=== PATIENT | male | born 1990 | race Caucasian/White ===

== ENCOUNTER 2024-08-08 15:16 | Emergency (ER) | payer OTHER ==
[~2024-08-08] VITALS: Ht 180.3 cm; Wt 93.0 kg
[2024-08-08] MEDS: TETanus/Pertussis (Acell)/Diphther VAC/PF (Tdap-Adult) 0.5ml syringe IMVAC ONE (15:44)
[2024-08-08] MEDS ORDERED: iohexol 350MG/ML 100ml bottle IV ONE (15:55)
[2024-08-08] MEDS ORDERED: iohexol 300mg/ml 100ml inj. ONE (15:56)
[2024-08-08 16:04] LABS: BASOPHILS # (AUTO) 0.1 X10'3 (0-0.2); BASOPHILS % (AUTO) 0.6 % (0-1); EOSINOPHILS # (AUTO) 0.2 X10'3 (0-0.9); EOSINOPHILS % (AUTO) 2.6 % (0-6); HEMATOCRIT 48.1 % (42.0-52.0); LYMPHOCYTES # (AUTO) 1.4 X10'3 (1.1-4.8); LYMPHOCYTES % (AUTO) 14.7 % (21-51); MEAN CORPUSCULAR HEMOGLOBIN 32.9 PG (27.0-31.0); MEAN CORPUSCULAR HGB CONC 35.4 g/dL (33.0-36.5); MEAN CORPUSCULAR VOLUME 92.9 FL (78-98); MONOCYTES # (AUTO) 0.6 X10'3 (0-0.9); MONOCYTES % (AUTO) 6.6 % (2-12); NEUTROPHILS # (AUTO) 7.1 X10'3 (1.8-7.7); NEUTROPHILS % (AUTO) 75.5 % (42-75); PLATELET COUNT 202 X10'3 (140-440); RED BLOOD COUNT 5.18 X10'6 (4.70-6.10); RED CELL DISTRIBUTION WIDTH 13.2 % (11.5-14.5); WHITE BLOOD COUNT 9.4 X10'3 (4.5-11.0)
[2024-08-08 16:15] LABS: ALANINE AMINOTRANSFERASE 28 U/L (12-78); ALBUMIN 4.2 G/DL (3.4-5.0); ALBUMIN/GLOBULIN RATIO 1.1 (1.1-1.5); ALKALINE PHOSPHATASE 102 IU/L (46-116); ANION GAP 8 (8-16); ASPARTATE AMINO TRANSFERASE 17 U/L (10-37); BILIRUBIN,TOTAL 0.9 MG/DL (0.1-1.0); BLOOD UREA NITROGEN 10 MG/DL (7-18); BUN/CREATININE RATIO 9.9 (10.0-20.0); CALCIUM 9.4 MG/DL (8.5-10.1); CHLORIDE 101 MMOL/L (99-107); CREATININE 1.01 MG/DL (0.60-1.10); GLUCOSE 90 MG/DL (70-104); POTASSIUM 3.5 MMOL/L (3.5-5.1); SODIUM 138 MMOL/L (135-145); TOTAL CARBON DIOXIDE 28.7 MMOL/L (24-32); TOTAL PROTEIN 8.1 G/DL (6.4-8.2); eCRCL 112 ML/MIN; eGFR 86 ML/MIN
[2024-08-08] MEDS ORDERED: HYDR-3965 PO (17:35)
[2024-08-08] MEDS ORDERED: IBUP-1986 PO (17:35)
[2024-08-08] MEDS ORDERED: CYCL-1 PO (17:35)
[2024-08-08 17:52] VITALS: BP 133/78; PULSE 80; RESP 15; TEMP 98; O2SAT 99
== END 2024-08-08 17:55 | disposition home or self-care (01) ==
LOC: ER 15:17
DX: S09.8XXA Other specified injuries of head, initial encounter (principal); M25.511 Pain in right shoulder; V89.2XXA Person injured in unspecified motor-vehicle accident, traffic, initial encounter; Y93.89 Activity, other specified; Y92.410 Unspecified street and highway as the place of occurrence of the external cause; Y99.8 Other external cause status
CPT/HCPCS: 36415; 70450; 71260; 72125; 74177; 80053; 85025; 85610; 90471; 90715; 99285; Q9967

== ENCOUNTER 2024-08-15 10:41 | Emergency (ER) | payer OTHER ==
[~2024-08-15] VITALS: Ht 180.3 cm; Wt 95.8 kg
[~2024-08-15 10:41] MED LIST: CYCL-1 PO; HYDR-3965 PO; IBUP-1986 PO
[2024-08-15 10:47] VITALS: TEMP 97.6
[2024-08-15] MEDS: HYDROcodone/acetaminophen 10/325mg tab PO ONE (13:12)
[2024-08-15] MEDS: cyclobenzaprine 10mg tablet PO ONE (13:12)
[2024-08-15] MEDS: ketorolac trometh 30MG/ML vial 30 MG/ML VIAL IM ONE (13:13)
[2024-08-15] MEDS ORDERED: METH4TAB81 PO (16:36)
[2024-08-15] MEDS ORDERED: HYDR-3965 PO (16:36)
[2024-08-15 16:55] VITALS: BP 134/83; PULSE 87; RESP 16; O2SAT 98
== END 2024-08-15 17:02 | disposition home or self-care (01) ==
LOC: ER 10:41
DX: M50.20 Other cervical disc displacement, unspecified cervical region (principal); R20.2 Paresthesia of skin; Z79.899 Other long term (current) drug therapy; V89.2XXA Person injured in unspecified motor-vehicle accident, traffic, initial encounter; Y93.89 Activity, other specified; Y92.89 Other specified places as the place of occurrence of the external cause; Y99.8 Other external cause status
CPT/HCPCS: 72141; 96372; 99285; J1885; L0172